=== PATIENT | female | born 1985 | race Caucasian/White ===

== ENCOUNTER 2019-08-09 01:47 | Emergency (ER) | payer MEDICAID, OTHER ==
[~2019-08-09] VITALS: Ht 162.6 cm; Wt 83.9 kg
[2019-08-09 01:51] VITALS: BP 150/90
--- NOTE | 2019-08-09 01:51 | NUR ---
TO BED # 12 AMBULATORY
--- NOTE | 2019-08-09 02:08 | NUR ---
PATIENT ASSESSMENT COMPLETED AT THIS TIME. PATIENT SITTING UP IN BED. GIVEN WATER. NO OTHER NEEDS STATED AT THIS TIME. BED IN LOW LOCKED POSITION. SIDE RAIL UP ON ONE SIDE.
[2019-08-09] MEDS ORDERED: LORazepam 2 MG/ML VIAL IM ONE (02:40)
[2019-08-09 03:41] VITALS: BP 138/87
== END 2019-08-09 03:42 | disposition home or self-care (01) ==
LOC: MED 01:47
DX: R20.0 Anesthesia of skin (principal); R20.2 Paresthesia of skin; F41.9 Anxiety disorder, unspecified; N39.0 Urinary tract infection, site not specified; F32.9 Major depressive disorder, single episode, unspecified
CPT/HCPCS: 81002; 81025; 96372; 99283; J2060